=== PATIENT | male | born 1930 | race Caucasian/White ===

== ENCOUNTER 2017-01-14 14:49 | Emergency (ER) | payer MEDICARE, OTHER ==
[~2017-01-14 14:49] MED LIST: AMLO5TAB96 PO; ASPI81 PO; ATOR20TA42 PO; CARB25TA PO; CEPH500C3 PO; LOTE10TA PO; PRED1%O OU; RIVA9.5T TD; TIMO0.5S29 OP
[2017-01-14 15:02] VITALS: BP 112/66; PULSE 63; RESP 12; TEMP 97.6; O2SAT 98
[2017-01-14] MEDS ORDERED: SODIUM CHLORIDE 0.9% FLUSH 10 ML FLUSH IVF PRN (15:15)
--- NOTE | 2017-01-14 15:52 | RADRPT ---
EXAM DATE/TIME: 01/14/2017 15:14 [facility] COMPARISON: No previous studies available for comparison. INDICATIONS : Dizziness. RADIATION DOSE: 65.42 CTDIvol (mGy) MEDICAL HISTORY : Parkinson's. Hypertension. SURGICAL HISTORY : None. ENCOUNTER: Initial ACUITY: 1 day PAIN SCALE: 0/10 LOCATION: cranial TECHNIQUE: Multiple contiguous axial images were obtained of the head. Using automated exposure control and adj ustment of the mA and/or kV according to patient size, radiation dose was kept as low as reasonably a chievable to obtain optimal diagnostic quality images. DICOM format image data is available electro nically for review and comparison. FINDINGS: CEREBRUM: Moderate diffuse cerebral atrophy. The ventricles are normal for age. No evidence of midline shift, mass lesion, hemorrhage or acute infarction. No extra-axial fluid collections are seen. POSTERIOR FOSSA: The cerebellum and brainstem are intact. The 4th ventricle is midline. The cerebellopontine angle i s unremarkable. EXTRACRANIAL: Left extraocular surgical change. Small mucous retention cyst in the right maxillary sinus. SKULL: The calvaria is intact. No evidence of skull fracture. CONCLUSION: 1. Senescent changes without acute intracranial abnormality. 2. Right maxillary sinus mucosal disease. Julian Hickey MD on January 14, 2017 at 15:49 Board Certified Radiologist. This report was verified electronically.
--- NOTE | 2017-01-14 15:53 | RADRPT ---
EXAM DATE/TIME: 01/14/2017 15:27 [facility] COMPARISON: CHEST SINGLE AP, July 25, 2011, 17:38. INDICATIONS : Palpitations. MEDICAL HISTORY : Hypercholesterolemia. Hypertension Cerebrovascular disease. Thyroid disease, Glaucoma, Parkinson 's disease SURGICAL HISTORY : Total knee replacement, left. Total knee replacement, right. Tonsillectomy. ENCOUNTER: Initial ACUITY: 1 day PAIN SCORE: 2/10 LOCATION: Bilateral chest FINDINGS: Stable small granuloma in the left lung base. No new focal pleural or parenchymal opacities. Cardiome diastinal contours are within normal limits. Bony thorax is intact. CONCLUSION: 1. No acute abnormality or significant interval change. Julian Hickey MD on January 14, 2017 at 15:51 Board Certified Radiologist. This report was verified electronically.
[2017-01-14 16:05] VITALS: O2SAT 96
[2017-01-14 16:21] LABS: AUTOMATED NEUTROPHIL # 3.9 TH/MM3 (1.8-7.7); BASOPHIL % 0.1 % (0.0-2.0); EOSINOPHIL # 0.1 TH/MM3 (0-0.4); EOSINOPHIL % 1.1 % (0.0-4.0); HEMATOCRIT 41.9 % (39.0-51.0); HEMO FLAGS DIFF FINAL; LYMPH % 15.5 % (9.0-44.0); LYMPHOCYTE # 0.8 TH/MM3 (1.0-4.8); MEAN CELL VOLUME 89.5 FL (80.0-100.0); MEAN CORPUSCULAR HEMOGLOBIN 30.3 PG (27.0-34.0); MEAN CORPUSCULAR HGB CONC 33.8 % (32.0-36.0); MONO % 4.9 % (0.0-8.0); NEUT % 78.4 % (16.0-70.0); PLATELET COUNT 129 TH/MM3 (150-450); RED BLOOD COUNT 4.68 MIL/MM3 (4.50-5.90); RED CELL DISTRIBUTION WIDTH 14.4 % (11.6-17.2); WHITE BLOOD COUNT 5.1 TH/MM3 (4.0-11.0)
[2017-01-14] MEDS ORDERED: MECL-62 PO (16:25)
[2017-01-14] MEDS ORDERED: CARB25TA9 PO (16:25)
[2017-01-14] MEDS ORDERED: BENA10TA PO (16:25)
[2017-01-14] MEDS ORDERED: AMLO5TAB2 PO (16:25)
[2017-01-14] MEDS ORDERED: RIVA13.3 T-DERMAL (16:25)
[2017-01-14] MEDS ORDERED: ASPI81CH6 CHEW (16:25)
[2017-01-14] MEDS ORDERED: TIMO0.5S30 LEFT EYE (16:25)
[2017-01-14] MEDS ORDERED: OMNI1SUS LEFT EYE (16:25)
[2017-01-14] MEDS ORDERED: ATOR20TA15 PO (16:25)
[2017-01-14 16:31] LABS: CHLORIDE 106 MEQ/L (98-107); POTASSIUM 4.1 MEQ/L (3.5-5.1); SODIUM (NA) 141 MEQ/L (136-145)
[2017-01-14 16:34] LABS: APTT (PATIENT) 27.1 SEC (24.3-30.1); PROTHROMBIN TIME - PATIENT 10.5 SEC (9.8-11.6)
[2017-01-14 16:36] LABS: ANION GAP 8 MEQ/L (5-15); BICARBONATE 27.2 MEQ/L (21.0-32.0); BLOOD UREA NITROGEN 17 MG/DL (7-18)
[2017-01-14 16:39] LABS: ALT (GPT) 11 U/L (12-78); AST (GOT) 18 U/L (15-37); GLOMERULAR FILTRATION RATE 71 ML/MIN (>89)
[2017-01-14 16:40] LABS: TOTAL BILIRUBIN ADULT 0.9 MG/DL (0.2-1.0)
[2017-01-14 16:42] LABS: ALKALINE PHOSPHATASE 68 U/L (45-117)
[2017-01-14 16:44] VITALS: BP 120/68; PULSE 64; RESP 16; O2SAT 95
--- NOTE | 2017-01-14 17:43 | PD ---
HPI Chief Complaint: Dizziness Time Seen by Provider: 14:59 Travel History International Travel<30 days: No Contact w/Intl Traveler<30days: No Traveled to known affect area: No History of Present Illness HPI Patient is an 86-year-old male who comes in because while having lunch his vision became very bright. He says he could see, but everything was very very bright that maybe vision a little bit blurry. He says this has happened before. He went to see an dock worker who then sent him to a neurologist. He says the little different this time because it's been lasting longer. He denies any headache, falls or head trauma. He denies any pain to his eye. He says he can see clearly out of his right eye. 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 He denies fever or chills. He denies chest pain or shortness of breath. He denies abdominal pain, nausea or vomiting. PFSH Past Medical History High Cholesterol: Yes Cerebrovascular Accident: Yes Diminished Hearing: No Glaucoma: Yes Hypertension: Yes Parkinson's Disease: Yes Immunizations Current: Yes Thyroid Disease: Yes Tetanus Vaccination: > 5 Years Influenza Vaccination: Yes Past Surgical History Joint Replacement: Yes (LT KNEE) Tonsillectomy: Yes Social History Alcohol Use: Yes (SOCIALLY) Tobacco Use: No Substance Use: No Allergies-Medications (Allergen,Severity, Reaction): Coded Allergies: No Known Allergies (Verified Adverse Reaction, Unknown, 01/14/17) Reported Meds & Prescriptions Reported Meds & Active Scripts Active Reported Aspirin Low Dose (Aspirin) 81 Mg Chew 81 Mg CHEW HS Meclizine (Meclizine HCl) 25 Mg Tab 25 Mg PO HS PRN Exelon Patch (Rivastigmine) 13.3 mg/24 hr Patch 1 Patch T-DERMAL HS Timolol Opth Drops 0.5 % Soln 1 Drop LEFT EYE HS Omnipred Opth Drops (Prednisolone Acetate Opth Drops) 1% Susp 1 Drop LEFT EYE HS Carbidopa-Levodopa 25-100 Mg Tab 1 Tab PO Q4HR Benazepril (Benazepril HCl) 10 Mg Tab 10 Mg PO DAILY Atorvastatin (Atorvastatin Calcium) 20 Mg Tab 20 Mg PO HS Amlodipine (Amlodipine Besylate) 5 Mg Tab 5 Mg PO DAILY Review of Systems Except as stated in HPI: all other systems reviewed are Neg General / Constitutional: No: Fever, Chills Eyes: No: Pain, Tearing HENT: No: Headaches, Lightheadedness Cardiovascular: No: Chest Pain or Discomfort, Palpitations Respiratory: No: Shortness of Breath Gastrointestinal: No: Nausea, Vomiting Genitourinary: No: Dysuria Musculoskeletal: No: Edema, Pain Skin: No Rash, No Change in Pigmentation Neurologic: No: Weakness, Dizziness, Syncope, Focal Abnormalities Physical Exam Narrative GENERAL: Awake and alert, in no acute distress. SKIN: Focused skin assessment warm/dry. No wounds or signs of infection. HEAD: Atraumatic. Normocephalic. EYES: Right pupil round and reactive, left cornea is cloudy. No scleral icterus. Extraocular movements intact. ENT: Mucous membranes pink and moist. NECK: Trachea midline. No JVD. CARDIOVASCULAR: Regular rate and rhythm. No murmur appreciated. RESPIRATORY: No accessory muscle use. Clear to auscultation. Breath sounds equal bilaterally. GASTROINTESTINAL: Abdomen soft, non-tender, nondistended. MUSCULOSKELETAL: No obvious deformities. No clubbing. No cyanosis. No edema. NEUROLOGICAL: Awake and alert. No obvious cranial nerve deficits. Motor grossly within normal limits. Slowed speech, secondary to Parkinson's disease, chronic PSYCHIATRIC: Appropriate mood and affect; insight and judgment normal. Data Data Last Documented VS Vital Signs Date Time Temp Pulse Resp B/P (MAP) Pulse Ox O2 Delivery O2 Flow Rate FiO2 01/14/17 17:51 63 16 127/68 (87) 95 Room Air 01/14/17 15:02 97.6 Orders Orders Complete Blood Count With Diff (01/14/17 15:07) Comprehensive Metabolic Panel (01/14/17 15:07) Troponin I (01/14/17 15:07) Act Partial Throm Time (Ptt) (01/14/17 15:07) Prothrombin Time / Inr (Pt) (01/14/17 15:07) Urinalysis - C+S If Indicated (01/14/17 15:07) Chest, Single Ap (01/14/17 15:07) Ct Brain W/O Iv Contrast(Rout) (01/14/17 15:07) Ecg Monitoring (01/14/17 15:07) Iv Access Insert/Monitor (01/14/17 15:07) Oximetry (01/14/17 15:07) Sodium Chloride 0.9% Flush (Ns Flush) (01/14/17 15:15) Electrocardiogram (01/14/17 15:03) Urine Culture (01/14/17 17:25) Labs Laboratory Tests Test 01/14/17 16:00 01/14/17 17:25 White Blood Count 5.1 TH/MM3 Red Blood Count 4.68 MIL/MM3 Hemoglobin 14.2 GM/DL Hematocrit 41.9 % Mean Corpuscular Volume 89.5 FL Mean Corpuscular Hemoglobin 30.3 PG Mean Corpuscular Hemoglobin Concent 33.8 % Red Cell Distribution Width 14.4 % Platelet Count 129 TH/MM3 Mean Platelet Volume 8.9 FL Neutrophils (%) (Auto) 78.4 % Lymphocytes (%) (Auto) 15.5 % Monocytes (%) (Auto) 4.9 % Eosinophils (%) (Auto) 1.1 % Basophils (%) (Auto) 0.1 % Neutrophils # (Auto) 3.9 TH/MM3 Lymphocytes # (Auto) 0.8 TH/MM3 Monocytes # (Auto) 0.3 TH/MM3 Eosinophils # (Auto) 0.1 TH/MM3 Basophils # (Auto) 0.0 TH/MM3 CBC Comment DIFF FINAL Differential Comment Prothrombin Time 10.5 SEC Prothromb Time International Ratio 1.0 RATIO Activated Partial Thromboplast Time 27.1 SEC Blood Urea Nitrogen 17 MG/DL Creatinine 1.00 MG/DL Random Glucose 109 MG/DL Total Protein 6.4 GM/DL Albumin 3.5 GM/DL Calcium Level 8.7 MG/DL Alkaline Phosphatase 68 U/L Aspartate Amino Transf (AST/SGOT) 18 U/L Alanine Aminotransferase (ALT/SGPT) 11 U/L Total Bilirubin 0.9 MG/DL Sodium Level 141 MEQ/L Potassium Level 4.1 MEQ/L Chloride Level 106 MEQ/L Carbon Dioxide Level 27.2 MEQ/L Anion Gap 8 MEQ/L Estimat Glomerular Filtration Rate 71 ML/MIN Troponin I LESS THAN 0.02 NG/ML Urine Color DESHAUN Urine Turbidity CLEAR Urine pH 6.5 Urine Specific [place] 1.026 Urine Protein NEG mg/dL Urine Glucose (UA) NEG mg/dL Urine Ketones 15 mg/dL Urine Occult Blood NEG Urine Nitrite NEG Urine Bilirubin NEG Urine Leukocyte Esterase NEG Urine RBC 0-3 /hpf Urine WBC 9-14 /hpf Urine Squamous Epithelial Cells 0-5 /hpf Urine Amorphous Sediment FEW Urine Hyaline Casts 50-100 /lpf Urine Mucus MANY /lpf Microscopic Urinalysis Comment CULTURE INDICATED MDM Medical Decision Making Medical Screen Exam Complete: Yes Emergency Medical Condition: Yes Medical Record Reviewed: Yes Interpretation(s) ECG shows sinus rhythm at a rate of 64, no ST elevation or depression. Differential Diagnosis Electrolyte abnormality versus TIA versus complication of Parkinson's disease Narrative Course Patient is an 86-year-old male who comes in complaining of an episode her he saw brightness. Exam shows no neurologic abnormalities. IV established, labs sent. Labs show no acute abnormalities. CT head performed shows no acute abnormalities. Chest x-ray shows no acute abnormalities. Patient's symptoms have resolved. Urinalysis is concerning for possible UTI. Patient will be given a prescription for antibiotics Patient has had this symptom in the past. He is following with ophthalmology and neurology for it. He has an appointment with ophthalmology in a week. He is advised to keep these appointments. He and his are comfortable with discharge at this time. Advised to return any time for any worsening symptoms. Last [address] 01/14/17 1507 Signed Impressions: Service Date/Time: Saturday, January 14, 2017 15:14 - CONCLUSION: 1. Senescent changes without acute intracranial abnormality. 2. Right maxillary sinus mucosal disease. Julian Hickey MD Chest X-Ray 01/14/17 1507 Signed Impressions: Service Date/Time: Saturday, January 14, 2017 15:27 - CONCLUSION: 1. No acute abnormality or significant interval change. Julian Hickey MD Diagnosis Primary Impression: Vision abnormalities Patient Instructions: Blurred Vision (ED), General Instructions, Urinary Tract Infection in Men (ED) Additional Instructions: Follow-up with your dock worker and neurologist. Return any time for any worsening symptoms. Scripts Cephalexin (Keflex) 500 Mg Capsule 500 MG PO Q6H for Infection for 7 Days, #28 CAP 0 Refills Prov: Amy Vera MD 01/14/17 Disposition: 01 DISCHARGE HOME Condition: Stable Amy Vera MD Jan 14, 2017 17:43
[2017-01-14 17:51] VITALS: BP 127/68; PULSE 63; RESP 16; O2SAT 95
[2017-01-14 18:02] LABS: BLOOD, URINE NEG (NEG); GLUCOSE,URINE NEG (NEG); KETONE, URINE 15 mg/dL (NEG); NITRITE,URINE NEG (NEG); PH, URINE 6.5 (5.0-8.5)
[2017-01-14 18:16] LABS: URINE COLOR AMBER (YELLW/STRAW)
[2017-01-14 18:17] LABS: HYALINE CAST, URINE 50-100 /lpf (RARE); MUCUS URINE MANY /lpf (OCC); RBC, URINE 0-3 /hpf (0-3); SQUAMOUS EPITHELIAL CELL URINE 0-5 /hpf (0-5)
[2017-01-14 18:18] LABS: COMMENT (UR) CULTURE INDICATED; CULTURE IF INDICATED CULTURE INDICATED
[2017-01-14] MEDS ORDERED: CEPH-460 PO (18:21)
--- NOTE | 2017-01-15 14:00 | EKG ---
Date Performed: 01/14/2017 Time Performed: 15:03:03 PTAGE: 86 years EKG: ECTOPIC ATRIAL RHYTHM POSSIBLE RIGHT VENTRICULAR CONDUCTION DELAY LEFT ANTERIOR FASCICULAR BLOCK ABNORMAL ECG Since PREVIOUS TRACING , no significant change noted PREVIOUS TRACIN03/31/2010 12.48 DOCTOR: Chris Santana Interpretating Date/Time 01/15/2017 14:00:00
== END 2017-01-14 18:37 | disposition home or self-care (01) ==
LOC: PHED 14:49
DX: H53.9 Unspecified visual disturbance (principal); E78.00 Pure hypercholesterolemia, unspecified; I10 Essential (primary) hypertension; G20 Parkinson's disease; E07.9 Disorder of thyroid, unspecified; R82.99 Other abnormal findings in urine; Z86.73 Personal history of transient ischemic attack (TIA), and cerebral infarction without residual deficits; Z79.82 Long term (current) use of aspirin
CPT/HCPCS: 70450; 71010; 80053; 81001; 84484; 85025; 85610; 85730; 87086; 93005; 99285